=== PATIENT | male | born 2000 | race Caucasian/White ===

== ENCOUNTER 2018-03-05 09:28 | Day surgery (SDC) | payer OTHER ==
--- OUTSIDE RECORDS SUMMARY | 2018-03-05 09:34 | XMS REPORT | Clinical Summary ---
:2000 Author Organization [facility] Address [address] [place] [address] Phone Care Team Providers Name Role Phone Unavailable Primary Care Provider Unavailable Allergies No Known Allergies Current Medications Prescription Sig. Disp. Refills Start Date End Date Status omeprazole (PRILOSEC) Take 40 mg by Active 40 MG capsule mouth daily. lansoprazole (PREVACID) Take 15 mg by Active 15 MG capsule mouth daily. pantoprazole (PROTONIX) Take 1 tablet (40 30 tablet 5 11/25/2015 Active 40 MG tablet mg total) by mouth daily. dextroamphetamine-amphe Take 40 mg by Active tamine mouth daily. (AMPHETAMINE-DEXTROAMPH ETAMINE) 20 mg Tab tablet QUEtiapine (SEROQUEL) Take 50 mg by Active 50 MG tablet mouth nightly. Active Problems Problem Noted Date Elevated liver enzymes 11/25/2015 Last Assessment & Plan: Review of laboratory data suggest mild hepatocellular pattern of liver injury. Likely etiology is fatty liver. Comprehensive work up done by Dr. Cherry for other etiology of elevated liver enzymes: negative for RICHY, AMA, Anti LKM-1, ferritin, ceruloplasmin, alpha-1 antitrypsin, celiac panel, ANCA, acute hepatitis panel. Anti Sm positive with titer of 45. ASMA can be positive in fatty liver. We will repeat liver function test today. We discussed weight loss. If liver enzymes remains elevated despite weight loss we will consider liver biopsy for further work up. Fatty liver disease, nonalcoholic 11/25/2015 Last Assessment & Plan: Diagnosis of fatty liver suspected based on abnormal lab and imaging. Risk factor for fatty liver is obesity. We recommended a 10% weight loss, which disproportionately decreases visceral fat and can am eliorate hepatic steatosis and steatohepatitis by 95-100%. We recommended a modified Demetrio's diet, substituting vegetables for wheat, corn, potato or rice or foods made from the flours of these carbohydrates. Immunity status testing 11/25/2015 Last Assessment & Plan: All patients with chronic liver disease, regardless of etiology, should be immunized to prevent hepatitis A and hepatitis B if they are not already immune. We will test for immunity to both viruses - nm ccine recommendations will follow. Chronic RUQ pain 11/25/2015 Last Assessment & Plan: He has chronic intermittent RUQ pain for many years. Unclear etiology, ? Heart burn/gastritis. US showed no gall stone. HIDA scan no sign of acute cholecystitis with normal gall bladder EF. He is followed by Dr. Cherry. GERD (gastroesophageal reflux disease) 11/25/2015 Last Assessment & Plan: Chronic heart burn with EGD finding of grade A lower esophagitis and mild gastritis. Biopsy negative for H.Pylori. He is currently taking Lansoprazole 15 mg and Omeprazole 40 mg with minimal releif. We will prescribe Protonix 40 mg before breakfast and Zantac 40 mg at bedtime. Indirect hyperbilirubinemia 11/25/2015 Last Assessment & Plan: Labs from 04/2014 showed T.Bili 2.9 with direct of 0.4. Fatty liver typically doesn't cause rise in bilirubin. We will test for UGT1 A-1 polymorphism assay for Gilbert syndrome. Family History Medical History Relation Name Comments Cancer Maternal Grandmother Hyperlipidemia Mother Hypertension Mother Cancer Paternal Grandfather Relation Name Status Comments Maternal Grandmother Mother Paternal Grandfather Social History Tobacco Use Types Packs/Day Years Used Date Never Smoker Alcohol Use Drinks/Week oz/Week Comments Yes Sex Assigned at Date Recorded Not on file Last Filed Vital Signs Not on file Plan of Treatment Health Maintenance Due Date Last Done Comments INFLUENZA VACCINE 05/21/2018 Results Not on fileafter 03/04/2017
[2018-03-05] MEDS ORDERED: Ringers Lactate 1,000 ML IV ONE (10:00)
[2018-03-05] MEDS ORDERED: CEFAZOLIN/SWI 1gm 1 GM/10 ML SYR ONE (10:01)
[2018-03-05] MEDS ORDERED: PROPOFOL 200 MG/20 ML VIAL IV ONE (10:29)
[2018-03-05] MEDS ORDERED: LIDOCAINE 2% MPF 5 ML VIAL ONE (10:29)
[2018-03-05] MEDS ORDERED: MIDAZOLAM HCL 2 MG/2 ML INJ ONE (10:29)
[2018-03-05] MEDS ORDERED: FENTANYL CITR 100 MCG/2 ML ONE (10:30)
[2018-03-05] MEDS ORDERED: ONDANSETRON 4 MG/2 ML VIAL ONE (10:31)
[2018-03-05] MEDS ORDERED: GLYCOPYRROLATE 0.2 MG/ML SYR ONE (10:31)
[2018-03-05] MEDS ORDERED: NEOSTIGMINE 1 MG/ML -5 ML SYRINGE ONE (10:32)
[2018-03-05] MEDS ORDERED: ROCURONIUM 50 MG/5 ML VIAL IV ONE (10:33)
[2018-03-05] MEDS ORDERED: Mastisol Adhesive Liq ONE (11:07)
[2018-03-05] MEDS ORDERED: METHYLENE BLUE 0.5% 10 ML AMP ONE (11:13)
--- NOTE | 2018-03-05 11:20 | P.BOP ---
Preoperative diagnosis: infected pilonidal cyst Postoperative diagnosis: same Primary procedure: Wide excision of infected pilonidal cyst [id number] with abscess Estimated blood loss: <10cc Specimen: cyst Findings: infected pilonidal cyst Anesthesia: General Drain(s): Other Transferred to: Recovery Room Condition: Good
[2018-03-05] MEDS ORDERED: CODEINE 30MG/APAP 300MG TAB ONE (12:34)
--- NOTE | 2018-03-05 22:31 | OP ---
Date of Procedure: 03/05/2018 Surgeon: Benjie Zaldivar MD Preoperative Diagnosis: Infected pilonidal cyst. Postoperative Diagnosis: Infected pilonidal cyst. Procedure: Wide excision of infected pilonidal cyst with abscess 5 x 3 x 2 cm. Surgeon: Benjie Zaldivar MD. Specimen: A cyst. Finding: Infected pilonidal cyst. Anesthesia: General plus local. Indications: This is a case of a 17-year-old patient with drainage from the sacral region, found to have infected pilonidal cyst. Wide excision was discussed with the patient with benefits, alternativ es, and risks including, but not limited to infection, bleeding, damage to adjacent structures, anest hesia complications, recurrence, [place], and even . He also understands this may not relieve any sy mptoms. He might need more than one surgical intervention. He understood also and the family the im portance of dressing changes. He signed the consent. Description Of Procedure: The patient was brought to the operating room, placed in supine position. Anesthesia was done without complication. The patient was placed in prone position with proper prot ection. The sacral area was prepped and draped in sterile fashion. The patient has already few area s draining. We proceeded to those areas and then also put a methylene blue in those areas to delineate the cyst. After that, a wide excision was done on that area all the way down to sacrum , bone is not exposed. The mass was completely excised with . The area was irrigated. Th en, the area was packed with wet-to-dry dressing after hemostasis obtained and after local anesthetic . Patient tolerated the procedure well. Patient was sent to recovery in stable condition. Diagnosis: Infected pilonidal cyst. Procedure: Wide excision of infected pilonidal cyst. Disposition: Home. Activity: As tolerated. No heavy lifting. Followup: Follow up in my office in 1 week. Call for appointment [phone]. Patient was offered [facility] for dressing changes. Patient will have wet-to-dry dressing daily, may take a show er between dressing changes. RAY/HANSA Voice ID: [id number] Report ID: [id number]
== END 2018-03-05 14:05 | disposition home health service (06) ==
LOC: OR 09:28
PROVIDERS: ATTEND Surgery
PROC: 0JB90ZZ Excision of Buttock Subcutaneous Tissue and Fascia, Open Approach (ICD-10-PCS; principal; 2018-03-05 11:45)
DX: L05.01 Pilonidal cyst with abscess (principal)
CPT/HCPCS: 88304; J0690; J2250; J2405; J2710; J3010

== ENCOUNTER 2018-03-10 16:38 | Emergency (ER) | payer OTHER ==
--- OUTSIDE RECORDS SUMMARY | 2018-03-10 16:41 | XMS REPORT | Clinical Summary ---
:2000 Author Organization [facility] Address [address] [place] [address] Phone Care Team Providers Name Role Phone [...] test for immunity to both viruses - sd ccine recommendations will follow. Chronic RUQ pain [...] INFLUENZA VACCINE 05/21/2018 Results Not on fileafter 03/09/2017
--- NOTE | 2018-03-10 18:01 | EDPHYS ---
Physician Documentation [facility] Name: Elliott Boyle Age: 17 yrs Sex: Male : 2000 Arrival Date: 03/10/2018 Time: 16:41 Bed 23 Private MD: Rose Marie Brizuela C ED Physician Justin Pineda HPI: 03/10 17:28 This 17 yrs old Male presents to ER via Ambulatory with complaints of Tail jmm Bone surgery recheck. 17:28 Onset: The symptoms/episode began/occurred today. Associated signs and symptoms: [facility] Pertinent positives: bleeding, Pertinent negatives: fever. This is a 17 year old male 5 days s/p pilonidal cyst removal. Patient states he developed significant bleeding after removing the packing. Patient states a large clot then developed and did not want to remove it due to concerns for bleeding. . Historical: - Allergies: 16:46 No Known Allergies; aa5 - PMHx: 16:46 None; aa5 - PSHx: 16:46 L hip(osteomyelitis); I\T\D-cyst to sacrum; aa5 - Immunization history:: Adult Immunizations up to date. - Ebola Screening: : No symptoms or risks identified at this time. - Social history:: Smoking status: Patient/guardian denies using tobacco, never smoked. ROS: 17:30 Constitutional: Negative for fever, chills, and weight loss. [facility] 17:30 MS/Extremity: Negative for injury and deformity, Skin: Negative for injury, rash, and discoloration. 17:30 Skin: Positive for bleeding. 17:30 All other systems are negative. Exam: 17:30 Head/Face: atraumatic. Chest/axilla: Normal chest wall appearance and motion. [facility] Cardiovascular: Regular rate and rhythm. No edema appreciated Respiratory: Normal respirations, no respiratory distress appreciated Abdomen/GI: Non distended, soft Back: Normal ROM 17:30 Constitutional: The patient appears in no acute distress, alert, awake. 17:30 Skin: elliptical wound noted to the superior gluteal cleft, a large blood clot is noted, no active bleeding is appreciated. . 17:30 Neuro: Orientation: is normal, Mentation: is normal, Memory: is normal. 17:30 Psych: Behavior/mood is pleasant, cooperative. Vital Signs: 16:46 BP 130 / 78; Pulse 89; Resp 16 S; Temp 97.4(TE); Pulse Ox 100% on R/A; Weight 104.33 kg aa5 (R); Height 6 ft. 2 in. (187.96 cm) (R); Pain 5/10; 17:00 BP 105 / 73; Pulse 88; Resp 18; Pulse Ox 100% ; tl3 16:46 Body Mass Index 29.53 (104.33 kg, 187.96 cm) aa5 MDM: 17:28 Patient medically screened. [facility] 17:58 Data reviewed: vital signs, nurses notes. Counseling: I had a detailed discussion with judy the patient and/or guardian regarding: the historical points, exam findings, and any diagnostic results supporting the discharge/admit diagnosis, the presence of at least one elevated blood pressure reading (>120/80) during this emergency department visit, the need for outpatient follow up, to return to the emergency department if symptoms worsen or persist or if there are any questions or concerns that arise at home. ED course: I discussed the patient with Dr. Zaldivar whom advised to remove blood clot and repack the wound. WOund was repacked with kerlix. Patient tolerated well. Administered Medications: No medications were administered Disposition: 18:48 Co-signature as Attending Physician, Justin Pineda MD. rn Disposition: 03/10/18 18:00 Discharged to Home. Impression: Wound Check. - Condition is Stable. - Discharge Instructions: Incision and Drainage of a Pilonidal Cyst, Care After. - Medication Reconciliation Form, Thank You Letter, Antibiotic Education, Prescription Opioid Use form. - Follow up: Benjie Zaldivar MD; When: 2 - 3 days; Reason: Continuance of care. Signatures: Bryant Singh PA PA jm Justin Pineda MD MD rn Calderon, Audri RN RN aa5 Janet Cannon RN RN tl3 Corrections: (The following items were deleted from the chart) 18:14 18:12 This 17 yrs old Male presents to ER via Ambulatory with complaints of jmm Tail Bone surgery recheck. [facility] 18:25 18:00 03/10/2018 18:00 Discharged to Home. Impression: Wound Check. Condition is tl3 Stable. Forms are Medication Reconciliation Form, Thank You Letter, Antibiotic Education, Prescription Opioid Use. Follow up: Benjie Zaldivar; When: 2 - 3 days; Reason: Continuance of care. jmm
--- NOTE | 2018-03-10 18:01 | ER ---
Nurse's Notes [facility] Name: Elliott Boyle Age: 17 yrs Sex: Male : 2000 Arrival Date: 03/10/2018 Time: 16:41 Bed 23 Private MD: Rose Marie Brizuela C Diagnosis: Wound Check Presentation: 03/10 16:45 Presenting complaint: Patient states: "I had a cyst drained by Dr. Zaldivar on Monday aa5 and today it started bleeding and it has a blood clot so I can't pack the wound and the home health nurse said to come here". 16:45 Transition of care: patient was not received from another setting of care. Onset of aa5 symptoms was February 2018. Risk Assessment: Do you want to hurt yourself or someone else? Patient reports no desire to harm self or others. Initial Sepsis Screen: Does the patient meet any 2 criteria? No. Patient's initial sepsis screen is negative. Does the patient have a suspected source of infection? No. Patient's initial sepsis screen is negative. Care prior to arrival: None. 16:45 Method Of Arrival: Ambulatory aa5 16:45 Acuity: JASON 4 aa5 Historical: - Allergies: 16:46 No Known Allergies; aa5 - PMHx: 16:46 None; aa5 - PSHx: 16:46 L hip(osteomyelitis); I\\T\\D-cyst to sacrum; aa5 - Immunization history:: Adult Immunizations up to date. - Ebola Screening: : No symptoms or risks identified at this time. - Social history:: Smoking status: Patient/guardian denies using tobacco, never smoked. Screenin:10 Abuse screen: Denies threats or abuse. Nutritional screening: No deficits noted. tl3 Tuberculosis screening: No symptoms or risk factors identified. Fall Risk None identified. Assessment: 17:00 General: Appears uncomfortable, slender, well groomed, well developed, well nourished, tl3 Behavior is calm, cooperative, appropriate for age. Pain: Complains of pain in buttocks. Neuro: Level of Consciousness is awake, alert, obeys commands, Oriented to person, place, time, situation, Appropriate for age. Cardiovascular: Heart tones S1 S2 present Patient's skin is warm and dry. Respiratory: Breath sounds are clear bilaterally. GI: No signs and/or symptoms were reported involving the gastrointestinal system. : No signs and/or symptoms were reported regarding the genitourinary system. EENT: No signs and/or symptoms were reported regarding the EENT system. Derm: No signs and/or symptoms reported regarding the dermatologic system. Musculoskeletal: pt had pilonidal cyst removed 5 days ago, has developed blood clot and pt is concerned about the amount of bleeding present. 18:10 Reassessment: Patient appears in no apparent distress at this time. No changes from tl3 previously documented assessment. Patient and/or family updated on plan of care and expected duration. Pain level reassessed. Patient is alert, oriented x 3, equal unlabored respirations, skin warm/dry/pink. pt wound cleaned by Bryant, blood clot removed, new packing placed, pt tolerated procedure well. Vital Signs: 16:46 BP 130 / 78; Pulse 89; Resp 16 S; Temp 97.4(TE); Pulse Ox 100% on R/A; Weight 104.33 kg aa5 (R); Height 6 ft. 2 in. (187.96 cm) (R); Pain 5/10; 17:00 BP 105 / 73; Pulse 88; Resp 18; Pulse Ox 100% ; tl3 16:46 Body Mass Index 29.53 (104.33 kg, 187.96 cm) aa5 ED Course: 16:41 Patient arrived in ED. mr 16:41 Rose Marie Brizuela MD is Private Physician. mr 16:45 Arm band placed on Patient placed in an exam room, on a stretcher. aa5 16:57 [facility] 16:57 Justin Pineda MD is Attending Physician. [facility] 17:04 Triage completed. aa5 18:00 Benjie Zaldivar MD is Referral Physician. [facility] 18:07 Janet Cannon, HANNAH is Primary Nurse. tl3 18:10 Patient has correct armband on for positive identification. Placed in gown. Bed in low tl3 position. Call light in reach. Side rails up X 1. Warm blanket given. 18:24 Patient did not have IV access during this emergency room visit. tl3 18:24 No provider procedures requiring assistance completed. tl3 Administered Medications: No medications were administered Outcome: 18:00 Discharge ordered by . [facility] 18:24 Discharged to home ambulatory. tl3 18:24 Condition: good 18:24 Discharge instructions given to patient, family, Instructed on discharge instructions, follow up and referral plans. wound care, Demonstrated understanding of instructions, follow-up care, wound care. 18:25 Patient left the ED. tl3 Signatures: Bryant Singh PA PA jmm Rivera, Maria mr LentzTrina, RN RN aa5 Janet Cannon RN RN tl3
== END 2018-03-10 18:25 | disposition home or self-care (01) ==
LOC: ER 16:38
DX: Z48.01 Encounter for change or removal of surgical wound dressing (principal)
CPT/HCPCS: 99281